=== PATIENT | male | born 1935 | race Caucasian/White ===

== ENCOUNTER 2023-09-29 08:10 | Emergency (ER) | payer MEDICARE ==
[~2023-09-29] VITALS: Ht 172.7 cm; Wt 77.1 kg
[2023-09-29] MEDS ORDERED: GABA100 PO (08:32)
[2023-09-29] MEDS ORDERED: AMLO5 PO (08:32)
[2023-09-29] MEDS ORDERED: LOSA25 PO (08:32)
[2023-09-29] MEDS ORDERED: OLAN5 PO (09:13)
[2023-09-29 09:40] LABS: Calcium, Ionized (POC) 1.12 mmol/L (1.10-1.46); Chloride (POC) 109 mmol/L (98-108); Creatinine (POC) 1.2 mg/dL (0.8-1.3); Glucose (ISTAT POC) 273 mg/dL (70-99); Hemoglobin (POC) 13.6 g/dL (13.5-17.5); Potassium (POC) 4.1 mmol/L (3.5-5.5); Sodium (POC) 140 mmol/L (135-148); Total CO2 (POC) 21 mmol/L (21-32)
[2023-09-29 10:27] VITALS: BP 158/76
== END 2023-09-29 10:28 | disposition home or self-care (01) ==
LOC: ER 08:10
PROVIDERS: Emergency Medicine
DX: F03.911 Unspecified dementia, unspecified severity, with agitation (principal); R73.9 Hyperglycemia, unspecified; I10 Essential (primary) hypertension; Z88.6 Allergy status to analgesic agent; Z79.899 Other long term (current) drug therapy
CPT/HCPCS: 80047; 85014; 99284